=== PATIENT | male | born 1990 | race Caucasian/White ===

== ENCOUNTER 2024-12-31 06:09 | Emergency (ER) | payer SELFPAY ==
[~2024-12-31] VITALS: Ht 180.3 cm; Wt 100.0 kg
[2024-12-31 06:14] VITALS: O2SAT 100
[2024-12-31 07:45] LABS: BASOPHILS % 0.4 % (0.0-2.0); EOSINOPHILS % 0.4 % (0.0-5.0); HEMATOCRIT. 41.1 % (42.0-52.0); HEMOGLOBIN. 13.8 g/dL (14.0-18.0); MEAN CORPUSCULAR HEMOGLOBIN 29.2 pg (28.0-32.0); MEAN CORPUSCULAR HGB CONC 33.5 g/dL (31.0-37.0); MEAN CORPUSCULAR VOLUME 87.2 fL (80.0-94.0); MEAN PLATELET VOLUME 7.3 fl (7.4-10.4); MONOCYTES % 7.7 % (2.0-8.0); NEUTROPHILS % 80.5 % (40.0-76.0); PLATELET 318 x1000/uL (130-400); RED BLOOD CELL COUNT 4.71 mill/uL (4.7-6.1); RED CELL DISTRIBUTION WIDTH 14.7 % (11.6-14.6); WHITE BLOOD COUNT 10.7 x1000/uL (4.5-11.0)
[2024-12-31 07:48] LABS: CHLORIDE 107 mEq/L (98-107); POTASSIUM 4.5 mEq/L (3.5-5.1); SODIUM 140 mEq/L (136-145)
[2024-12-31 07:49] LABS: CARBON DIOXIDE 26 mEq/L (21-32)
[2024-12-31 07:54] LABS: GLUCOSE 117 mg/dL (70-105); UREA NITROGEN BLOOD 11 mg/dL (9-23)
[2024-12-31 08:02] LABS: ETHANOL BLOOD < 10 mg/dL (<10)
[2024-12-31 09:07] VITALS: BP 149/73; PULSE 101; RESP 16; TEMP 36.9; O2SAT 100
== END 2024-12-31 09:13 | disposition home or self-care (01) ==
LOC: ER 06:38
DX: R41.82 Altered mental status, unspecified (principal); R56.9 Unspecified convulsions
CPT/HCPCS: 36415; 80048; 80320; 85025; 99284; G0480